=== PATIENT | male | born 1945 | race Caucasian/White ===

== ENCOUNTER → 2017-07-20 | Outpatient (CLI) | payer MEDICARE, OTHER ==
[~2017-07-20] MED LIST: ASPI325T32 PO; ATOR40TA70 PO; DOXY100C42 PO; HYDR-756 PO; LEVO750T39 PO; MTF500T PO; MULT-974 PO; PANT40SU PO; [UNRECOGNIZED DRUG - CODE] PO
== END ==
LOC: CARD 12:07
PROVIDERS: ATTEND Physician Assistant
DX: I65.23 Occlusion and stenosis of bilateral carotid arteries (principal); I49.5 Sick sinus syndrome; E78.2 Mixed hyperlipidemia; R55 Syncope and collapse
CPT/HCPCS: 93306

== ENCOUNTER → 2019-03-19 | Outpatient (CLI) | payer MEDICARE, OTHER ==
[~2019-03-19] MED LIST changes: +CATHETER FLUSH 10 ML SYR IV PRN; +HYDR-4227 PO; -HYDR-756 PO; +REGADENOSON 0.4 MG/5 ML SYR (LEXISCAN) IV ONE
[2019-03-19 09:46] VITALS: BP 156/89
[2019-03-19 09:48] VITALS: BP 137/81
--- NOTE | 2019-03-19 18:48 | STRESS TEST ---
DATE OF SERVICE: 03/19/2019 LEXISCAN MYOVIEW STRESS TEST REPORT REFERRING PHYSICIAN: Dr. Alanis. Baseline heart rate is 81, baseline blood pressure 156/89. Baseline EKG is sinus rhythm with no ischemic changes. In summary, the patient was injected with 10.24 mCi of technetium-99 Myoview and the resting images were obtained. Then, the patient received 0.4 mg of Lexiscan followed by 28.9 mCi of technetium-99 Myoview. Throughout the test, there were no EKG changes. The patient had frequent PVCs after Lexiscan injection. The resting and stress images were reviewed and compared in the short axis, horizontal long axis, and vertical long axis views. Review of the images showed diaphragmatic attenuation with increased intestinal uptake with no significant ischemia or infarction. SSS is 3, SDS 2, TID value 1.07. On the gated images, the left ventricle appeared to be normal size with normal contractility. Calculated ejection fraction 66%. CONCLUSION: 1. The patient tolerated Lexiscan well. 2. Diaphragmatic attenuation with typical male pattern with no significant ischemia or infarction on SPECT images. 3. Normal left ventricular size with normal contractility. Calculated ejection fraction 66%. Job ID: [id number] DocumentID: [id number] Dictated Date: 03/19/2019 16:28:05 Drum Cleaner Date: 03/19/2019 18:48:19 Dictated By: SONNY PRAJAPATI MD
== END ==
LOC: CARD 08:14
PROVIDERS: ATTEND Physician Assistant
DX: I49.5 Sick sinus syndrome (principal); E11.9 Type 2 diabetes mellitus without complications; I65.29 Occlusion and stenosis of unspecified carotid artery; E78.5 Hyperlipidemia, unspecified
CPT/HCPCS: 78452; 93017; 93306

== ENCOUNTER → 2020-04-08 | Outpatient (CLI) | payer MEDICARE, OTHER ==
[~2020-04-08] MED LIST changes: -CATHETER FLUSH 10 ML SYR IV PRN; -REGADENOSON 0.4 MG/5 ML SYR (LEXISCAN) IV ONE
--- NOTE | 2020-04-08 17:21 | Diagnostic Imaging Report ---
CLINICAL HISTORY: Hip and back pain. COMPARISON: 02/05/2007. TECHNIQUE: 2 views of the right hip. FINDINGS: There is no acute fracture or dislocation of the right hip. Alignment is anatomic. The included pelvis is unremarkable. Surgical clips are seen in the right aspect of the pelvis. IMPRESSION: 1. No acute fracture or dislocation in the right hip. Dictated by: Dictated on workstation # [id number]
--- NOTE | 2020-04-08 17:22 | Diagnostic Imaging Report ---
EXAMINATION: Lumbosacral spine 2 or 3 views HISTORY: Back pain. COMPARISON: 02/05/2007 FINDINGS: There is no acute fracture or dislocation of the lumbar spine. Slight right convexity curvature of the lumbar spine is noted. There is straightening of the lumbar spine with grade 1 retrolisthesis of L3 on L4. Degenerative changes are seen in the lumbar spine with disc height loss, marginal osteophytes, and facet hypertrophy. These appear most prominent at the L2-L3 and L3-L4 levels. The surrounding soft tissues of the lumbar spine demonstrate no acute abnormalities. IMPRESSION: 1. No acute fracture or dislocation in the lumbar spine. 2. Degenerative changes in the lumbar spine, greatest at L2-L3 and L3-L4. Dictated by: Dictated on workstation # [id number]
--- NOTE | 2020-04-08 17:32 | Diagnostic Imaging Report ---
EXAMINATION: Chest 2 view HISTORY: Cough. Rib and back pain. COMPARISON: 07/16/2015. FINDINGS: The lung volumes are normal. No focal consolidation is seen. No large pleural effusion or pneumothorax is seen. Right pectoral dual-chamber pacemaker is in place. The cardiomediastinal silhouette is normal in size and contour. No acute osseous abnormality is seen. IMPRESSION: 1. No acute pleuroparenchymal process. Dictated by: Dictated on workstation # [id number]
--- NOTE | 2020-04-08 17:33 | Diagnostic Imaging Report ---
INDICATION: Back pain. COMPARISON: None available. TECHNIQUE: 3 views of the thoracic spine were obtained. FINDINGS: Normal kyphosis of the thoracic spine. No spondylolisthesis. Vertebral bodies are normal in stature without fracture or ankylosis. Intervertebral disc space heights are well preserved throughout the thoracic spine. Mild degenerative disc disease in the cervical spine is incompletely characterized on this exam. Potential bone island within the lower thoracic vertebrae versus calcified pulmonary granuloma. Right-sided pectoral transvenous pacemaker. IMPRESSION: No fracture or advanced degenerative changes in the thoracic spine. Dictated by: Dictated on workstation # [id number]
== END ==
LOC: RAD 16:44
PROVIDERS: ATTEND Family Medicine
DX: M47.816 Spondylosis without myelopathy or radiculopathy, lumbar region (principal)
CPT/HCPCS: 71046; 72072; 72100; 73502

== ENCOUNTER → 2020-08-11 | Outpatient (CLI) | payer MEDICARE, OTHER | LOC: CARD 11:30 | PROVIDERS: ATTEND Physician Assistant | DX: I35.1 Nonrheumatic aortic (valve) insufficiency (principal); I10 Essential (primary) hypertension | CPT/HCPCS: 93306 ==

== ENCOUNTER 2022-08-24 10:06 | Outpatient (RCR) | payer MEDICARE, OTHER ==
[~2022-08-24 10:06] MED LIST changes: +DOXY-444 PO; +LEVO750T PO; -LEVO750T39 PO
== END 2022-09-10 | disposition home or self-care (01) ==
LOC: ONC 10:06
PROVIDERS: ATTEND Internal Medicine Hematology & Oncology
DX: C61 Malignant neoplasm of prostate (principal); E11.9 Type 2 diabetes mellitus without complications; E78.2 Mixed hyperlipidemia
CPT/HCPCS: 84153

== ENCOUNTER → 2022-09-27 | Outpatient (CLI) | payer MEDICARE, OTHER | LOC: CARD 14:00 | PROVIDERS: ATTEND Internal Medicine Cardiovascular Disease | DX: I35.1 Nonrheumatic aortic (valve) insufficiency (principal); I11.9 Hypertensive heart disease without heart failure | CPT/HCPCS: 93306 ==

== ENCOUNTER → 2022-10-25 | Outpatient (CLI) | payer MEDICARE, OTHER ==
[~2022-10-25] MED LIST changes: +CATHETER FLUSH 10 ML SYR IVP PRN; +REGADENOSON 0.4 MG/5 ML SYR (LEXISCAN) IV ONE
[2022-10-25 08:56] VITALS: BP 142/51
--- NOTE | 2022-10-25 11:34 | Cardiology Stress Test Report ---
Stress Test Report Date of Procedure/Referring: Date of Procedure: October 25, 2022 PCP Terra Alanis MD Admitting Physician Admitting Physician: Attending Physician: Hernando Oliveira MD Baseline Heart Rate: 77 Baseline Blood Pressure: Blood Pressure Systolic: 142 Blood Pressure Diastolic: 51 Baseline Vitals Vital Signs Date Time Temp Pulse Resp B/P (MAP) Pulse Ox O2 Delivery O2 Flow Rate FiO2 10/25/22 08:56 77 142/51 (81) Baseline EKG: Baseline EKG: NSR Summary After explaining the procedure to the patient, he signed a consent and then brought to the stress nuclear laboratory. Patient received 0.4 mg Lexiscan for stress test, ECG, heart rate and blood pressure were monitored continuously. Resting and stress dose of radio tracer were injected, imaging was acquired and reviewed in short axis, horizontal long axis and vertical long axis views. TID: 0.89 SSS: 4 SDS: 4 EF: 72 Patient tolerated Lexiscan well Occasional PVCs and ventricular trigeminy noted during test Diaphragmatic attenuation and motion artifact affecting the quality of the images, mild decrease uptake at the inferoapical segment with mild reversibility, overall there is no significant ischemia or infarction on SPECT images Normal left ventricular size, ejection fraction 72% Copy Copies To 1: TERRA ALANIS MD, BASHAR J MD October 25, 2022 11:34
== END ==
LOC: CARD 07:06
PROVIDERS: ATTEND Internal Medicine Cardiovascular Disease
DX: I49.8 Other specified cardiac arrhythmias (principal)
CPT/HCPCS: 78452; 93017; A9502